=== PATIENT | male | born 1970 | race Caucasian/White ===

== ENCOUNTER 2020-04-15 19:34 | Emergency (ER) | payer BC ==
[2020-04-15] MEDS ORDERED: MORPHINE 4 MG/ML SYR ONE (20:38)
[2020-04-15] MEDS ORDERED: ONDANSETRON 4 MG/2 ML VIAL ONE (20:39)
[2020-04-15] MEDS ORDERED: DIAZEPAM 10 MG/2 ML INJ SYRINGE ONE (20:39)
[2020-04-15 20:40] LABS: Basophils % 0.9 % (0-1.3); Hematocrit 41.8 % (39.6-49.0); Lymphocytes % 20.1 % (15.3-44.8); MPV 8.7 fL (7.6-11.3); RBC Red Blood Cell Count 4.52 M/uL (4.33-5.43)
[2020-04-15 20:52] LABS: Albumin 4.1 g/dL (3.4-5.0); Bilirubin Direct 0.3 mg/dL (0-0.2); Bilirubin Total 1.1 mg/dL (0.2-1.0); Potassium 3.4 mmol/L (3.5-5.1); Protein, Total 7.6 g/dL (6.4-8.2)
--- NOTE | 2020-04-15 21:17 | RAD REPORT ---
EXAM DESCRIPTION: CT - Abdomen Pelvis W Contrast - 04/15/2020 9:03 pm CLINICAL HISTORY: Left inguinal hernia swelling COMPARISON: No comparisons TECHNIQUE: Biphasic, helical CT imaging of the abdomen and pelvis was performed following 100 ml non -ionic IV contrast. No oral contrast given. All CT scans are performed using dose optimization technique as appropriate and may include automated exposure control or mA/KV adjustment according to patient size. FINDINGS: No suspicious findings in the lung bases. The liver, spleen, and pancreas show no suspicious findings. Gallbladder and biliary tree are also wi thout suspicious finding. Symmetric renal function is seen with no hydronephrosis or suspicious renal mass. No pyelonephritis o r acute parenchymal process. Parapelvic cysts are present. No adrenal abnormalities. Urinary bladder is distended. No bladder wall thickening or mass. No bladder calculus. No gastric dilatation or wall thickening. A few nonspecific fluid-filled nondilated small bowel loops are present. The appendix is normal. From cecum to mid descending colon no acute finding is seen. Ap proximately 10 centimeter length of the descending sigmoid junction of the colon extends into a large left inguinal hernia. Left hydrocele is present as well. The herniated colon shows no wall thickenin g or edema. The herniated fat is not congested or edematous. Proximal to the hernia the colon is not dilated. No free air, free fluid or inflammatory stranding. No mass or bulky lymphadenopathy. No suspicious bony findings. IMPRESSION: Large left inguinal hernia containing approximately 10 centimeter length of the descendi ng - sigmoid junction of the colon. There is an associated small left hydrocele. The herniated bowel shows no wall thickening or edema. The herniated fat shows no congestion or edema . Urinary bladder is distended which results in functional minimal fullness of the the bilateral renal collecting systems.
--- NOTE | 2020-04-15 22:30 | ER ---
Nurse's Notes [facility] Name: Deniz Lomeli Age: 50 yrs Sex: Male : 1970 Arrival Date: 04/15/2020 Time: 19:36 Bed 13 Private MD: Diagnosis: Inguinal hernia Presentation: 04/15 19:53 Chief complaint: Patient states: Left groin hernia for years. Painful lump higher up ll1 than usual today to left groin area. No fever. Coronavirus screen: Client denies travel out of the [place] in the last 14 days. At this time, the client does not indicate any symptoms associated with coronavirus-19. Ebola Screen: Patient denies travel to an Ebola-affected area in the 21 days before illness onset. Initial Sepsis Screen: Does the patient meet any 2 criteria? No. Patient's initial sepsis screen is negative. Does the patient have a suspected source of infection? Yes: Dysuria/Frequency/Urgency/UTI. Risk Assessment: Do you want to hurt yourself or someone else? Patient reports no desire to harm self or others. Onset of symptoms was April 15, 2020. 19:53 Method Of Arrival: Ambulatory ll1 19:53 Acuity: LONNIE 3 ll1 Historical: - Allergies: 19:54 No Known Allergies; ll1 - PSHx: 19:54 None; ll1 - Immunization history:: Flu vaccine is not up to date. - Social history:: Smoking status: Patient reports use of chewing tobacco. Patient denies any tobacco usage or history of. Screenin:26 Abuse screen: Denies threats or abuse. Denies injuries from another. Nutritional rv screening: No deficits noted. Tuberculosis screening: No symptoms or risk factors identified. Fall Risk None identified. Assessment: 21:30 General: Appears uncomfortable, Behavior is calm, cooperative. rv 21:30 Pain: Complains of pain in groin and left inguinal area. Neuro: Level of Consciousness rv is awake, alert, obeys commands, Oriented to person, place, time, situation. Cardiovascular: Patient's skin is warm and dry. Respiratory: Airway is patent Respiratory effort is even, unlabored. GI: Bowel sounds present X 4 quads. Abdomen is tender to palpation in left upper quadrant, right lower quadrant and left lower quadrant. Derm: Skin is intact. Vital Signs: 19:53 BP 155 / 96; Pulse 81; Resp 17; Temp 98.3; Pulse Ox 99% ; Weight 68.04 kg; Height 5 ft. ll1 7 in. (170.18 cm); Pain 5/10; 21:30 BP 127 / 86; Pulse 78; Resp 17; Pulse Ox 99% on R/A; rv 22:26 BP 121 / 82; Pulse 94; Resp 18; Pulse Ox 98% on R/A; rv 19:53 Body Mass Index 23.49 (68.04 kg, 170.18 cm) ll1 ED Course: 19:36 Patient arrived in ED. bp1 19:39 Barry Mccauley PA is PHCP. jmm 19:39 Jayden Mahoney MD is Attending Physician. jmm 19:54 Triage completed. ll1 19:55 Arm band placed on Patient placed in an exam room, on a stretcher. ll1 20:15 Placed in gown. Bed in low position. Call light in reach. Verbal reassurance given. jp3 Pulse ox on. NIBP on. 20:16 Jatin Brown, RN is Primary Nurse. rv 20:31 Initial lab(s) drawn, by me, sent to lab. Inserted saline lock: 20 gauge in left jp3 antecubital area, using aseptic technique. Blood collected. Patient maintains SpO2 saturation greater than 95% on room air. 21:04 CT Abd/Pelvis - IV Contrast Only In Process Unspecified. EDMS 22:26 No provider procedures requiring assistance completed. rv 22:29 Piter Wallace MD is Referral Physician. jmm 22:50 IV discontinued, intact, bleeding controlled, No redness/swelling at site. Pressure rv dressing applied. Administered Medications: 20:30 Drug: Zofran (Ondansetron) 4 mg Route: IVP; Site: left antecubital; rv 21:28 Follow up: Response: No adverse reaction rv 20:30 Drug: morphine 4 mg {Note: rass 0.} Route: IVP; Site: left antecubital; rv 21:28 Follow up: Response: No adverse reaction; Pain is unchanged, physician notified; RASS: rv Alert and Calm (0) 21:27 Drug: Valium 5 mg Route: IVP; Site: left antecubital; rv 22:51 Follow up: Response: No adverse reaction; Marked relief of symptoms; Pain is decreased; rv RASS: Alert and Calm (0) Outcome: 22:29 Discharge ordered by . ethan 22:50 Discharged to home ambulatory, with family. rv 22:50 Condition: improved 22:50 Discharge instructions given to patient, Instructed on discharge instructions, follow up and referral plans. medication usage, Demonstrated understanding of instructions, follow-up care, medications, Prescriptions given X 1. 22:51 Patient left the ED. rv Signatures: Dispatcher [employer] EDMS Barry Mccauley PA PA jmm Vicente, Ronaldo, RN RN rv Bro Mendoza jp3 Jenny Lunsford, RN RN ll1 Yolanda Ingram [facility]
--- NOTE | 2020-04-15 22:31 | EDPHYS ---
Physician Documentation [facility] Name: Deniz Lomeli Age: 50 yrs Sex: Male : 1970 Arrival Date: 04/15/2020 Time: 19:36 Bed 13 Private MD: ED Physician Jayden Mahoney HPI: 04/15 20:21 This 50 yrs old Male presents to ER via Ambulatory with complaints of Hernia, jmm Abdominal Pain. 20:21 The patient presents with left groin swelling. Onset: The symptoms/episode jmm began/occurred gradually. Modifying factors: The symptoms are alleviated by nothing, the symptoms are aggravated by movement. Associated signs and symptoms: Pertinent negatives: vomiting. This is a 50 year old male with a history of left inguinal hernia that presents to the ED with complaints of swelling to the region which will not resolve with lying down. Patient also complains of left sided abdominal pain. . Denies vomiting, fever. Historical: - Allergies: 19:54 No Known Allergies; ll1 - PSHx: 19:54 None; ll1 - Immunization history:: Flu vaccine is not up to date. - Social history:: Smoking status: Patient reports use of chewing tobacco. Patient denies any tobacco usage or history of. ROS: 20:21 Constitutional: Negative for fever, chills, and weight loss, Cardiovascular: Negative jmm for chest pain, palpitations, and edema, Respiratory: Negative for shortness of breath, cough, wheezing, and pleuritic chest pain. 20:21 Abdomen/GI: Positive for abdominal pain. 20:21 : Positive for groin pain. 20:21 All other systems are negative. Exam: 20:21 Constitutional: This is a well developed, well nourished patient who is awake, alert, jmm and in no acute distress. Head/Face: atraumatic. Eyes: EOMI, no conjunctival erythema appreciated ENT: Moist Mucus Membranes Neck: Trachea midline, Supple Chest/axilla: Normal chest wall appearance and motion. Cardiovascular: Regular rate and rhythm. No edema appreciated Respiratory: Normal respirations, no respiratory distress appreciated 20:21 Back: Normal ROM Skin: General appearance color normal MS/ Extremity: Moves all extremities, no obvious deformities appreciated, no edema noted to the lower extremities Neuro: Awake and alert, normal gait Psych: Behavior is normal, Mood is normal, Patient is cooperative and pleasant 20:21 Abdomen/GI: left inguinal mass appreciated. Vital Signs: 19:53 BP 155 / 96; Pulse 81; Resp 17; Temp 98.3; Pulse Ox 99% ; Weight 68.04 kg; Height 5 ft. ll1 7 in. (170.18 cm); Pain 5/10; 21:30 BP 127 / 86; Pulse 78; Resp 17; Pulse Ox 99% on R/A; rv 22:26 BP 121 / 82; Pulse 94; Resp 18; Pulse Ox 98% on R/A; rv 19:53 Body Mass Index 23.49 (68.04 kg, 170.18 cm) ll1 MDM: 20:[address] [facility] 22:28 Data reviewed: vital signs, nurses notes. Counseling: I had a detailed discussion with [facility] the patient and/or guardian regarding: the historical points, exam findings, and any diagnostic results supporting the discharge/admit diagnosis, lab results, radiology results, the need for outpatient follow up, to return to the emergency department if symptoms worsen or persist or if there are any questions or concerns that arise at home. ED course: Hernia reduced in the ED. Ct negative for strangulation. Labs unremarkable. Pain has decreased in the ED. Patient is advised to follow up with gen surgery and otherwise given strict return precautions. Patient understood and agrees with the plan of care. . 04/15 20:11 Order name: Basic Metabolic Panel; Complete Time: 21:04 [facility] 04/15 20:11 Order name: CBC with Diff; Complete Time: 20:42 [facility] 04/15 20:11 Order name: Hepatic Function; Complete Time: 21:04 [facility] 04/15 20:11 Order name: Lipase; Complete Time: 21:04 [facility] 04/15 20:19 Order name: CT Abd/Pelvis - IV Contrast Only; Complete Time: 21:22 [facility] 04/15 20:25 Order name: Lactate; Complete Time: 21:04 [facility] 04/15 20:11 Order name: IV Saline Lock; Complete Time: 21:07 [facility] 04/15 20:11 Order name: Labs collected and sent; Complete Time: 21:07 [facility] Administered Medications: 20:30 Drug: Zofran (Ondansetron) 4 mg Route: IVP; Site: left antecubital; rv 21:28 Follow up: Response: No adverse reaction rv 20:30 Drug: morphine 4 mg {Note: rass 0.} Route: IVP; Site: left antecubital; rv 21:28 Follow up: Response: No adverse reaction; Pain is unchanged, physician notified; RASS: rv Alert and Calm (0) 21:27 Drug: Valium 5 mg Route: IVP; Site: left antecubital; rv 22:51 Follow up: Response: No adverse reaction; Marked relief of symptoms; Pain is decreased; rv RASS: Alert and Calm (0) Disposition: 22:55 Co-signature as Attending Physician, Jayden Mahoney MD. rn Disposition: 04/15/20 22:29 Discharged to Home. Impression: Inguinal hernia. - Condition is Stable. - Discharge Instructions: Inguinal Hernia, Adult. - Prescriptions for Tylenol- Codeine #3 300-30 mg Oral Tablet - take 1 tablet by ORAL route every 6 hours As needed; 20 tablet. - Medication Reconciliation Form, Thank You Letter, Antibiotic Education, Prescription Opioid Use, Work release form form. - Follow up: Piter Wallace MD; When: 2 - 3 days; Reason: Recheck today's complaints, Continuance of care, Re-evaluation by your physician. Signatures: Dispatcher [employer] EDMS Barry Mccauley PA PA jm Jayden Mahoney MD MD rn Vicente, Ronaldo, RN RN rv Lewis, Lynsay, RN RN ll1 Corrections: (The following items were deleted from the chart) 22:51 22:29 04/15/2020 22:29 Discharged to Home. Impression: Inguinal hernia. Condition is rv Stable. Forms are Medication Reconciliation Form, Thank You Letter, Antibiotic Education, Prescription Opioid Use. Follow up: Piter Wallace; When: 2 - 3 days; Reason: Recheck today's complaints, Continuance of care, Re-evaluation by your physician. ethan
[2020-04-15 23:21] VITALS: TEMP 98.3
[2020-04-15 23:24] VITALS: BP 121/82; O2SAT 98
== END 2020-04-15 22:51 | disposition home or self-care (01) ==
LOC: ER 19:34
DX: K40.90 Unilateral inguinal hernia, without obstruction or gangrene, not specified as recurrent (principal); F17.220 Nicotine dependence, chewing tobacco, uncomplicated
CPT/HCPCS: 85025; 80048; 36415; 80076; 83605; 83690; 74177; 96375; 96374; 99284; J3360; J2405